=== PATIENT | male | born 1985 | race African-American/Black ===

== ENCOUNTER 2016-10-23 13:14 | Emergency (ER) | payer OTHER, MEDICARE | END 2016-10-23 15:11 | disposition home or self-care (01) | LOC: ER1 13:14 | DX: L02.211 Cutaneous abscess of abdominal wall (principal) | CPT/HCPCS: 10061; 87070; 87205; 99283 ==

== ENCOUNTER 2016-10-24 15:26 | Emergency (ER) | payer OTHER, MEDICARE | END 2016-10-24 16:20 | disposition home or self-care (01) | LOC: ER1 15:26 | DX: L02.211 Cutaneous abscess of abdominal wall (principal) | CPT/HCPCS: 99282 ==

== ENCOUNTER 2016-10-26 19:29 | Emergency (ER) | payer OTHER, MEDICARE | END 2016-10-26 22:20 | disposition home or self-care (01) | LOC: ER1 19:29 | DX: L02.211 Cutaneous abscess of abdominal wall (principal); I10 Essential (primary) hypertension; F17.210 Nicotine dependence, cigarettes, uncomplicated | CPT/HCPCS: 99282 ==

== ENCOUNTER → 2021-12-13 | Outpatient (CLI) | payer OTHER ==
[~2021-12-13] MED LIST: BACTRIM DS TAB1 EACH PO; BACTROBAN OINT22 GM EXT; CLEOCIN HCL300 MG PO; FLEXERIL 10 MG10 MG PO; IBUPROFEN600 MG PO; KEFLEX CAP 500500 MG PO; NAPROSYN500 MG PO; [UNRECOGNIZED DRUG - OTHER]
== END ==
LOC: RAD 16:06
DX: M54.2 Cervicalgia (principal); M54.6 Pain in thoracic spine; M54.50 Low back pain, unspecified; R05.9 Cough, unspecified; M47.812 Spondylosis without myelopathy or radiculopathy, cervical region; M47.814 Spondylosis without myelopathy or radiculopathy, thoracic region; M47.816 Spondylosis without myelopathy or radiculopathy, lumbar region
CPT/HCPCS: 71046; 72050; 72072; 72110